=== PATIENT | male | born 1990 | race Two or more races ===

== ENCOUNTER 2025-04-13 19:41 | Emergency (ER) | payer MEDICAID, SELFPAY ==
[2025-04-13 19:44] VITALS: BMI 46.0
--- NOTE | 2025-04-13 19:44 | EKG_ITS ---
[facility] Test Date: 2025-04-13 Pat Name: BRENDA ANTUNEZ Department: Room: - Gender: Male Process Owner: : 1990 Requested By: ED Temporary Provider Order Number: [id number] Reading MD: ED Temporary Provider Measurements Intervals [place] Rate: 100 P: 39 [place]: 144 QRS: 52 QRSD: 105 T: 47 QT: 337 QTc: 435 Interpretive Statements SINUS TACHYCARDIA ABNORMAL RHYTHM ECG Compared to ECG 12/24/2022 08:51:48 Intraventricular conduction delay no longer present /store/S0/[id number].pdf
[2025-04-13 19:53] VITALS: BP 156/96; PULSE 108; RESP 20; TEMP 37.6; O2SAT 99
--- NOTE | 2025-04-13 19:56 | XR_ITS ---
EXAMINATION: PA chest single view TECHNIQUE: Upright PA chest single view Date and time: 2024, 2005 hours, comparison October 24, 2022 INDICATION: Right-sided chest pressure and pain beginning 2 hours ago. FINDINGS: Mild enlargement cardiac contour Mild vascular congestion. No lobar pneumonia or pulmonary edema IMPRESSION: Mild vascular congestion
--- NOTE | 2025-04-13 19:57 | PD.EDRME ---
Rapid Medical Screening Exam RME Arrival date/time: 04/13/25 19:41 Chief Complaint: Chest Pain Vital signs: Vital Signs Temperature 99.7 F 04/13/25 19:53 Pulse Rate 108 H 04/13/25 19:53 Respiratory Rate 20 04/13/25 19:53 Blood Pressure 156/96 H 04/13/25 19:53 Pulse Oximetry (%) 99 04/13/25 19:53 Oxygen Delivery Method Room Air 04/13/25 19:53 RME Narrative: Right sided chest heaviness/pressure x 2 hours, initiated after eating dinner Exam: No acute distress, appears anxious Clinical Impression: Chest pressure
--- NOTE | 2025-04-13 20:45 | PD.EDCHEST ---
ED Chest Pain RME/HPI General Chief Complaint: Chest Pain Stated Complaint: CHEST PAIN,SOB Time Seen by Provider: 04/13/25 20:45 Arrival date/time: 04/13/25 19:41 RME / HPI RME / HPI narrative: Right sided chest heaviness/pressure x 2 hours, initiated after eating dinner Dr. Diego?s Main ED Evaluation: 35yo male with no significant past medical history presents to the ED for a chief complaint of right-sided chest pain x 1700. Patient describes his pain as tightness and pressure in nature. His pain does not worsen when he takes a deep breath. Patient endorses his pain started after he ate dinner tonight. Patient reports associated shortness of breath. Denies any cough, fever, chills, or any other associated symptoms. Patient admits to last using methamphetamines 1 week ago. NKA. Related Data Previous Rx's ?Medication ?Instructions ?Recorded amlodipine 10 mg tablet 10 mg PO QDAY #30 tabs 04/13/25 Allergies Allergy/AdvReac Type Severity Reaction Status Date / Time No Known Allergies Allergy Verified 04/13/25 19:45 Review of Systems Review of Systems Systems Reviewed: All systems reviewed, normal except as documented Past Medical History Past Medical History CARDIAC: Negative Cardiac Disorders or Congestive Heart Failure RESPIRATORY: Negative Chronic Obstructive Pulmonary Disease (COPD) or Asthma GASTROINTESTINAL: Positive Diverticulitis GENITOURINARY: Negative Renal Disease ENDOCRINE: Negative Diabetes Mellitus Type 1 or Diabetes Mellitus Type 2 HEMATOLOGIC: Negative Sickle Cell Disease OTHER HISTORY: Positive Hospitalization; Negative Falls, Blood Transfusions or Anesthesia Reactions Surgical History SURGICAL: Positive Abdominal Surgery Social History SMOKING STATUS: Never smoker SUBSTANCE USE: marijuana ED Exam Narrative Physical exam: Generally patient is alert and in no obvious distress, heart regular rate and rhythm, lungs clear to auscultation equal bilaterally, abdomen is obese soft nontender, extremities show symmetrical 2+ pitting pedal edema to midway up the tibias. Neurologic exam Karishma Coma Scale is 15. Course Course Course Narrative: CXR is ordered for determining the etiology of chest pain. Quality Measures none Orders Category Date Time Status EKG (ED ONLY) *Do not use* NOW Care 04/13/25 19:45 Completed CXR [XR chest 1V] Stat Exams 04/13/25 19:56 Completed EKG (ED Only) Stat Exams 04/13/25 19:44 Draft BNP [B-Type Natriuretic Peptide] Stat Lab 04/13/25 20:22 Completed CBC Stat Lab 04/13/25 20:22 Completed CMP [Comprehensive Metabolic Panel] Stat Lab 04/13/25 20:22 Completed Drug Screen,Urine Stat Lab 04/13/25 19:57 Ordered Troponin I Stat Lab 04/13/25 20:22 Completed amLODIPine BESYLATE [Norvasc] Med 04/13/25 21:10 Once 10 mg PO X1 ONE Vital Signs Vital signs: Vital Signs Temperature 99.7 F 04/13/25 19:53 Pulse Rate 108 H 04/13/25 19:53 Respiratory Rate 20 04/13/25 19:53 Blood Pressure 156/96 H 04/13/25 19:53 Pulse Oximetry (%) 99 04/13/25 19:53 Oxygen Delivery Method Room Air 04/13/25 19:53 Chest Pain MDM Narrative MDM Narrative:: Scribe Attestation: 04/13/25 - Carmen Sarkar am scribing for and in the presence of Dr. Diego. 3-hour troponin from the onset of chest pain was not elevated. EKG was nonischemic. Chest x-ray is normal. Patient has been hypertensive here in the emergency room with systolic blood pressure in the 170s and diastolic blood pressure in the low 100s. Patient admits to recently doing methamphetamine. He is to refrain from doing methamphetamine. He was given amlodipine 10 mg p.o. for his blood pressure and will be started on amlodipine for hypertension. He is to stop the methamphetamine. Heart score is 0. Patient data External records reviewed:: [facility] previous records (Per chart review, patient was admitted here on 12/24/22 for left groin abscess.) Clinical information provided by:: patient Social determinants that could affect healthcare access:: substance use Patient has the following chronic illnesses:: none How is presenting disease/condition affected by chronic disease/condition?: no chronic disease Evaluation data The following diagnostics were reviewed and interpreted by me:: lab results, radiology exam(s) and EKG tracing(s) Lab and/or radiology exams considered but not ordered:: none Interpretation Summary: [facility] Report Signed Patient: BRENDA ANTUNEZ [facility]. Record#: [id number] Birthdate: 1990 Age/Sex: 35 / M Location: [facility] Attending Dr: Ordering Physician: Prudencio Tomlin PA-C Date of Service: 04/13/25 Procedure(s): XR chest 1V Accession Number(s): [id number] cc: Maurice Rich MD; rPudencio Tomlin PA-C~ EXAMINATION: PA chest single view TECHNIQUE: Upright PA chest single view Date and time: 2024, 2005 hours, comparison October 24, 2022 INDICATION: Right-sided chest pressure and pain beginning 2 hours ago. FINDINGS: Mild enlargement cardiac contour Mild vascular congestion. No lobar pneumonia or pulmonary edema IMPRESSION: Mild vascular congestion Dictated By: Maurice Rich MD Signed By: <Electronically signed by Maurice Rich MD in OV> 04/13/252040 Medications / Prescriptions Medications or Prescriptions considered but not ordered:: none Medication administrations:: none Consultations Consultation(s) initiated? (list below): No Diagnosis Chest Pain Differential Diagnosis: other (See MDM) Most likely diagnosis given after review of the tests above:: see clinical impression below Admission Indicated Admission indicated?: not indicated Admission Request Was there a request for admission?: No Disposition Plan Disposition Plan: Discharge Discharge Attestation Discharge Attestation: The patient and all family members were given an opportunity to ask questions and understood the discharge instructions. Discharge instructions specifically effects, indications for sooner follow up or return to the emergency department, and the expected course of current diagnosis. Patient condition: Stable Discharge Plan Plan Patient Disposition: HOME (Self Care) Prescriptions/Referrals Prescriptions/Med Rec: New amlodipine 10 mg tablet 10 mg PO QDAY Qty: 30 0RF Referrals: Brian Mena MD [Primary Care Provider, Family Practice] - In 1 week Problem List Clinical Impression: Chest pain, Methamphetamine use Patient/Caregiver Discharge Instructions Education Materials: Understanding Methamphetamine ..., ED Chest Pain, Uncertain Cause Additional Instructions: You must stop the methamphetamine. Take the blood pressure medication as prescribed. Follow-up with your doctor. Return to ER as needed or if condition worsens. Print Language: Spanish Stand Alone Forms: Mary Award Info., Patient Portal Info Letter
[2025-04-13 20:53] LABS: Basophils # (Auto) 0.0 Thou/mm3 (0.0-0.2); Basophils % (Auto) 0 % (0-2.5); Eosinophils # (Auto) 0.0 Thou/mm3 (0.0-0.5); Eosinophils % (Auto) 1 % (0-10); Hematocrit 41.4 % (41.0-53.0); Hemoglobin 13.4 g/dL (13.5-16.0); Immature Granulocytes Auto 0.01 Thou/mm3 (0.00-0.00); Lymphocytes # (Auto) 2.6 Thou/mm3 (1.0-4.8); Lymphocytes % (Auto) 50 % (10-50); Mean Corpuscular HGB Conc 32.4 g/dl (31.0-37.0); Mean Corpuscular Hemoglobin 30.8 pg (25.0-35.0); Mean Corpuscular Volume 95 fL (80-100); Monocytes # (Auto) 0.5 Thou/mm3 (0.0-0.8); Monocytes % (Auto) 9 % (0-12); Neutrophils # (Auto) 2.2 Thou/mm3 (1.8-7.7); Neutrophils % (Auto) 41 % (37-80); Nucleated Red Blood Cell # 0.00 Thou/mm3 (0.00-0.00); Nucleated Red Blood Cell % 0 /100 WBC (0); Platelet Count 222 Thou/mm3 (140-440); RDW Standard Deviation 45.0 fL (35.1-43.9); Red Blood Count 4.35 Miln/mm3 (4.50-5.90); White Blood Count 5.3 Thou/mm3 (3.8-10.6)
[2025-04-13 20:59] LABS: B-Type Natriuretic Peptide < 20 pg/mL (0-100)
[2025-04-13 21:01] LABS: Alanine Aminotransferase 62 U/L (10-49); Albumin, Serum 4.8 gm/dL (3.5-5.0); Albumin/Globulin Ratio 1.1 (1.2-2.2); Alkaline Phosphatase 72 U/L (46-116); Anion Gap 8 (7-16); Aspartate Amino Transferase 41 U/L (0-34); BUN/Creatinine Ratio 10 Ratio (12-20); Bilirubin,Total 0.8 mg/dL (0.3-1.2); Blood Urea Nitrogen 10 mg/dL (9-23); Calcium 9.6 mg/dL (8.3-10.6); Calcium (Corrected) 9.6 mg/dL (8.5-10.1); Carbon Dioxide 25.3 mMol/L (20.0-31.0); Chloride 104 mMol/L (98-107); Creatinine (Component) 1.0 mg/dL (0.6-1.3); Estimated Creatinine Clearance 153.2 mL/min (>60); Globulin 4.2 gm/dL (2.3-3.5); Glucose 92 mg/dL (74-106); Osmolality,Calculated 272 (275-295); Potassium 3.6 mMol/L (3.4-5.1); Sodium 137 mMol/L (136-145); Total Protein 9.0 gm/dL (5.7-8.2); Troponin I < 0.020 ng/mL (0.0-0.045); eGFR > 60 See Note
[2025-04-13 21:16] VITALS: BP 170/121; PULSE 93
[2025-04-13 21:19] VITALS: BP 170/120; PULSE 90; RESP 20; TEMP 37.2; O2SAT 100
== END 2025-04-13 21:20 | disposition home or self-care (01) ==
PROVIDERS: Physician Assistant; Emergency Provider Emergency Medicine; PCP Specialist
DX: R07.89 Other chest pain (principal); F15.90 Other stimulant use, unspecified, uncomplicated
CPT/HCPCS: 36415; 71045; 80053; 80307; 83880; 84484; 85025; 93005; 99283; A9270